=== PATIENT | female | born 1965 | race Hispanic/Latino ===

== ENCOUNTER 2021-01-27 17:25 | Emergency (ER) | payer BC ==
[2021-01-27] MEDS ORDERED: fentaNYL 100 MCG/2 ML INJ IV ONE (18:27)
[2021-01-27] MEDS ORDERED: ONDANSETRON 4 MG/2 ML INJ IV ONE (18:27)
[2021-01-27] MEDS ORDERED: AMPICILLIN/SULBACTA 3GM/100ML 3 GM/100 ML BAG IV ONE (18:27)
--- NOTE | 2021-01-27 18:31 | Emergency Department Report ---
ED Abdominal Pain HPI - General Chief Complaint: Abdominal Pain Stated Complaint: ABDOMINAL PAIN Time Seen by Provider: 01/27/21 18:20 Source: patient Mode of arrival: Ambulatory Limitations: No Limitations - History of Present Illness Initial Comments: Patient presents with generalized abdominal pain over the last 2 to 3 days. She reports having lower abdominal pain. The pain has radiated up into the left upper quadrant. She has no fevers or chills. There has been nausea without vomiting. She has not had diarrhea. This is similar pain to what she has had previously with diverticular disease. Last time that she had an episode was about 1 year ago. She was treated with dual therapy. Patient states that she came in today because of the pain. She has no dysuria or frequency. She has no history of recent travel or trauma. She has no injury. Pain is constant and aching. It is sharp. It is worse with palpation. Severity scale (0 -10): 7 - Related Data Previous Rx's Medication Instructions Recorded Last Taken Type Amoxicillin/Potassium Clav 1 each PO BID #20 tablet 01/27/21 Unknown Rx [Augmentin 875-125 Tablet] oxyCODONE /ACETAMINOPHEN [Percocet 1 tab PO Q6HR PRN #20 tablet 01/27/21 Unknown Rx 5/325] Allergies Allergy/AdvReac Type Severity Reaction Status Date / Time codeine AdvReac Itching Verified 01/27/21 17:38 morphine AdvReac Vomiting Verified 01/27/21 17:38 Penicillins AdvReac Unknown Verified 01/27/21 17:38 ED Review of Systems ROS: Stated complaint: ABDOMINAL PAIN Other details as noted in HPI Comment: All other systems reviewed and negative Constitutional: denies: fever Eyes: denies: eye pain ENT: denies: throat pain Respiratory: denies: cough Cardiovascular: denies: chest pain Endocrine: denies: unexplained weight loss Gastrointestinal: as per HPI Genitourinary: denies: dysuria Musculoskeletal: denies: back pain Skin: denies: rash Neurological: denies: headache Hematological/Lymphatic: denies: easy bruising ED Past Medical Hx - Past Medical History Additional medical history: PVCs, multifocal, diverticulitis - Surgical History Additional Surgical History: tumor removal x12 years. hysterectomy x13 yrs - Family History Family history: no significant - Medications Home Medications: Home Medications Medication Instructions Recorded Confirmed Last Taken Type Amoxicillin/Potassium Clav 1 each PO BID #20 tablet 01/27/21 Unknown Rx [Augmentin 875-125 Tablet] oxyCODONE /ACETAMINOPHEN [Percocet 1 tab PO Q6HR PRN #20 tablet 01/27/21 Unknown Rx 5/325] ED Physical Exam - General Limitations: No Limitations, Other (Pulse ox is noted and normal) General appearance: alert, in distress (Moderate), obese - Head Head exam: Present: atraumatic, normocephalic, normal inspection - Eye Eye exam: Present: normal appearance, EOMI. Absent: scleral icterus - ENT ENT exam: Present: normal exam, normal orophraynx - Neck Neck exam: Present: normal inspection. Absent: meningismus - Respiratory Respiratory exam: Present: normal lung sounds bilaterally. Absent: respiratory distress - Cardiovascular Cardiovascular Exam: Present: regular rate, normal rhythm - GI/Abdominal GI/Abdominal exam: Present: soft, tenderness (Left lower quadrant). Absent: guarding, rebound, pulsatile mass - Extremities Exam Extremities exam: Present: normal capillary refill. Absent: pedal edema - Back Exam Back exam: Absent: CVA tenderness (R), CVA tenderness (L) - Neurological Exam Neurological exam: Present: alert, oriented X3, CN II-XII intact. Absent: motor sensory deficit - Psychiatric Psychiatric exam: Present: normal affect, normal mood - Skin Skin exam: Present: warm, dry ED Course Vital Signs 01/27/21 17:38 Temperature 98.6 F Pulse Rate 80 Respiratory 14 Rate Blood Pressure 132/80 [Left] O2 Sat by Pulse 99 Oximetry - Reevaluation(s) Reevaluation #1: 01/27/21 18:30 IV labs ordered. All records reviewed. Patient was given Unasyn. She states that she can take all derivatives of penicillin. She states that she just cannot take penicillin. She has taken Augmentin, Unasyn, and other penicillin derivatives before including amoxicillin. Reevaluation #2: 01/27/21 19:29 Labs are noted and the patient was discharged ED Medical Decision Making - Lab Data Result diagrams: 01/27/21 18:30 01/27/21 18:30 - Medical Decision Making Patient presents with lower abdominal pain and mild leukocytosis. This similar pain to what she has had with diverticulitis. Patient does not have peritoneal findings. She does not appear to be septic or toxic. She does not have profound leukocytosis. I do not believe this represents peritoneal abscess or perforation. We discussed management of diverticulitis. She has taken Augmentin before with no problem. I do not think that treating her with monotherapy is an appropriate. She had been on dual therapy before. I believe monotherapy would be appropriate at this time and she is amenable to this. is in agreement. She certainly does not appear to have severe sepsis or septic shock. There is no evidence of organ dysfunction Critical Care Time: No Critical care attestation.: If time is entered above; I have spent that time in minutes in the direct care of this critically ill patient, excluding procedure time. ED Disposition Clinical Impression: Left lower quadrant pain, Diverticulitis Disposition: HOME / SELF CARE / HOMELESS Is pt being admited?: No Condition: Stable Instructions: Abdominal Pain (ED), Diverticulitis Additional Instructions: Have a bland diet. Drink plenty water. Return for problems. Follow-up with yo regular physician for recheck and further management. Have a high-fiber diet. Prescriptions: Amoxicillin/Potassium Clav [Augmentin 875-125 Tablet] 1 each PO BID #20 tablet oxyCODONE /ACETAMINOPHEN [Percocet 5/325] 1 tab PO Q6HR PRN #20 tablet PRN Reason: Pain Referrals: PRIMARY CAREMD [Referring] - 3-5 Days ORLY CRISTOBAL MD [Staff Physician] - 3-5 Days
[2021-01-27 18:44] LABS: Basophils # (Auto) 0.1 K/mm3 (0.0-0.1); Basophils % (Auto) 0.9 % (0.0-1.8); Eosinophils # (Auto) 0.1 K/mm3 (0.0-0.4); Eosinophils % (Auto) 0.6 % (0.0-4.3); Hematocrit 40.2 % (30.3-42.9); Hemoglobin 13.4 gm/dl (10.1-14.3); Lymphocytes # (Auto) 3.3 K/mm3 (1.2-5.4); Lymphocytes % (Auto) 25.7 % (13.4-35.0); Mean Corpuscular HGB Conc 33 % (30-34); Mean Corpuscular Volume 87 fl (79-97); Monocytes # (Auto) 1.4 K/mm3 (0.0-0.8); Monocytes % (Auto) 11.1 % (0.0-7.3); Platelet Count 266 K/mm3 (140-440); Red Blood Count 4.65 M/mm3 (3.65-5.03); Red Cell Distribution Width 13.4 % (13.2-15.2)
[2021-01-27 19:00] LABS: Blood Urea Nitrogen 8 mg/dL (7-17); Hemolysis Index 4
[2021-01-27 19:01] LABS: BUN/Creatinine Ratio 16
[2021-01-27 20:01] VITALS: BP 132/81
== END 2021-01-27 20:59 | disposition home or self-care (01) ==
LOC: ED 17:25
DX: K57.92 Diverticulitis of intestine, part unspecified, without perforation or abscess without bleeding (principal)
CPT/HCPCS: 36415; 80048; 85025; 96365; 96375; 99283; J0295; J2405; J3010